=== PATIENT | male | born 1975 | race Caucasian/White ===

== ENCOUNTER 2022-04-01 18:33 | Emergency (ER) | payer BC, SELFPAY ==
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
[2022-04-01 18:45] VITALS: BP 116/90; PULSE 79; RESP 16; TEMP 37.2; O2SAT 100
[2022-04-01] MEDS: SILVER SULFADIAZINE 1% CR 50 GM JAR (*BKC) 2 APPLIC TOPICAL (19:15)
== END 2022-04-01 19:24 | disposition home or self-care (01) ==
PROVIDERS: Emergency Provider Nurse Practitioner Family
DX: L55.1 Sunburn of second degree (principal); L03.115 Cellulitis of right lower limb
CPT/HCPCS: 16030; 99203; A9270; G0463

== ENCOUNTER 2022-06-16 09:53 | Emergency (ER) | payer BC, SELFPAY ==
--- NOTE | 2022-06-16 10:00 | ED.URI ---
HPI - URI/Sore Throat General Chief Complaint: Upper Respiratory Infection Stated Complaint: sore throat Time Seen by Provider: 06/16/22 10:00 Source: patient and RN notes reviewed Mode of arrival: ambulatory Limitations: no limitations History of Present Illness HPI Narrative: 46-year-old male presents concern for 10-day history of illness. Reports 5 to 6-day history of sore throat. Reports cough. Reports cough keeping him awake at night. Reports he had cephalexin prescribed for a virtual doctor's visit, he is still taking an antibiotic and he does not feel better. Reports intermittent fever. Reports he has been taking NyQuil. Reports his son had strep throat. MD elicited complaint: cough and sore throat Related Data Home Medications Medication Instructions Recorded Confirmed atorvastatin 20 mg tablet 20 mg PO HS 04/01/22 04/01/22 lisinopril 10 mg tablet 10 mg PO DAILY 04/01/22 04/01/22 Allergies Allergy/AdvReac Type Severity Reaction Status Date / Time No Known Allergies Allergy Verified 04/01/22 18:44 Review of Systems Review of Systems: CONSTITUTIONAL: Reports malaise, intermittent fever. EYES: Denies visual changes, redness, or discharge. ENT: Reports rhinorrhea, congestion, sore throat. Denies sinus pain, otalgia CARDIOVASCULAR: Denies chest pain, palpitations, or edema. RESPIRATORY: Reports persistent cough. Denies dyspnea. GASTROINTESTINAL: Denies abdominal pain, nausea, vomiting, diarrhea SKIN: Denies rash or itching. MUSCULOSKELETAL: Denies myalgia. NEUROLOGIC: Denies headache. All systems reviewed & are unremarkable except as noted in HPI and below [facility] Surgical History Surgical History (Updated 04/01/22 @ 18:52 by JOHN Huang) History of tonsillectomy Comments At time of signature, agree with nursing past medical, surgical, social and family history. There is no relevant family history pertinent to the presenting complaint Exam Narrative: GENERAL: Nontoxic appearing and in no acute distress. HEAD: Normocephalic EYES: PERRLA, conjunctivae clear ENT: Nares clear, turbinates edematous and erythematous, clear discharge. Mucous membranes moist. TM pearly davis with dull light reflex bilaterally; no tragal tenderness. Oropharynx not erythematous without lesions. Tonsils not enlarged and without exudate, no drooling, no hoarseness, no trismus, uvula midline. NECK: Supple. No lymphadenopathy CHEST: Clear to auscultation, breath sounds equal. No wheezing, rhonchi, rales, or stridor. No respiratory distress, speaks in full sentences. HEART: Regular rate and rhythm. No murmur heard. SKIN: Warm, dry, no rash. NEURO: Alert and oriented x3. PSYCH: Normal mood and affect Course Course Emergency Course: Patient is aware of diagnosis, understands and agrees to treatment plan. Anticipatory guidance given. Patient agrees to follow-up as directed and is aware of reasons to seek care at the emergency department. Portions of this record may have been created with voice recognition software Level of Care: Express Care Visit Vital Signs Vital signs: Reviewed. MDM - URI/Sore Throat MDM Narrative Medical decision making narrative: Differential diagnosis considered: Choudhury virus, strep pharyngitis, allergic rhinitis, upper respiratory tract infection, sinusitis, rhinosinusitis, nasopharyngitis. viral pharyngitis, otitis media, otitis externa, pneumonia, bronchitis, viral cough syndrome, viral syndrome, and influenza. Exam findings show no acute concerns or changes; patient is non-toxic appearing and is in no distress. Patient is appropriate for outpatient treatment and follow-up. Lab Data Attestation: I reviewed the patient's lab results. Critical Care Time Critical Care Time Critical Care Time: No Discharge Plan Discharge Clinical Impression: URI with cough and congestion Patient Disposition: Home, Self-Care Condition: Stable Instructions: Upper Respiratory Infection (ED) [place]
[2022-06-16 10:03] VITALS: BP 134/99; PULSE 110; RESP 16; TEMP 36.4; O2SAT 100
== END 2022-06-16 10:22 | disposition home or self-care (01) ==
PROVIDERS: Emergency Provider Nurse Practitioner
DX: J06.9 Acute upper respiratory infection, unspecified (principal); R05.9 Cough, unspecified
CPT/HCPCS: 99213; G0463

== ENCOUNTER 2022-08-24 16:55 | Emergency (ER) | payer BC, SELFPAY ==
[2022-08-24 17:04] VITALS: BP 113/83; PULSE 99; RESP 16; TEMP 36.6; O2SAT 100
--- NOTE | 2022-08-24 17:13 | ED.NAVMDI ---
HPI - Nausea/Vomiting/Diarrhea General Chief complaint: Nausea/Vomiting/Diarrhea Stated complaint: dizzy, nausea, vomitting Time Seen by Provider: 08/24/22 17:13 Source: patient, RN notes reviewed and old records reviewed Mode of arrival: ambulatory Limitations: no limitations History of Present Illness HPI Narrative: 47 year old male who presents to [facility] care with complaints of feeling dizzy and nausea and vomiting since he awoke this morning.He reports that anytime he moves he throws up. Patient states last night he felt like he was off balance but this morning symptoms of vomiting and dizziness and vertigo can't keep anything down. Patient reports that he has no history of migraine and no known ill contacts. Patient states before Thanksgiving he was ill with cough and cold symptoms which resolved by weekend after Thanksgiving.Patient denies any fevers chills or any sweats today, reports no pain to abdomen or anywhere, denies any history of previous episodes of vertigo. Patient is daily tobacco smoker but has not smoked today. MD elicited complaint: nausea, vomiting and other (vertigo) Onset (ago): day(s) (this am) Treatment prior to arrival: none Related Data Home Medications Medication Instructions Recorded Confirmed atorvastatin 20 mg tablet 20 mg PO HS 04/01/22 08/24/22 lisinopril 10 mg tablet 10 mg PO DAILY 04/01/22 08/24/22 Allergies Allergy/AdvReac Type Severity Reaction Status Date / Time No Known Allergies Allergy Verified 08/24/22 17:12 Review of Systems Review of Systems: CONSTITUTIONAL: Denies malaise, chills, sweats, or fever. EYES: Denies visual changes, redness, or discharge. ENT: No rhinorrhea, congestion, sinus pain, otalgia and sore throat. CARDIOVASCULAR: Denies chest pain, palpitations, or edema. RESPIRATORY:Denies cough.? Denies dyspnea. GASTROINTESTINAL: Denies abdominal pain, positive for nausea, vomiting,no diarrhea SKIN: Denies rash or itching. MUSCULOSKELETAL: Denies myalgia. NEUROLOGIC: Denies headache.positive for vertigo and vomiting with position changes. All systems reviewed & are unremarkable except as noted in HPI and below [facility] Past Medical History Medical History (Updated 08/24/22 @ 19:14 by Brittany Quintana NP) Finger fracture Surgical History Surgical History (Updated 04/01/22 @ 18:52 by JOHN Huang) History of tonsillectomy Social History Social History (Updated 08/24/22 @ 19:13 by Brittany Quintana NP) Smoking status: Current every day smoker Tobacco type: cigarettes Gender identity (if verbalized by the patient): Male Comments At time of signature, agree with nursing past medical, surgical, social and family history. There is no relevant family history pertinent to the presenting complaint Exam Narrative: GENERAL: Well-appearing, well-nourished, and in no acute distress. HEAD: Normocephalic EYES: PERRLA, conjunctivae clear ENT: Nares clear, turbinates edematous and erythematous, clear discharge. Mucous membranes moist. TM pearly davis with dull light reflex bilaterally; no tragal tenderness. Oropharynx erythematous without lesions. Tonsils not enlarged and without exudate, no drooling, no hoarseness, no trismus, uvula midline. NECK: Supple. No lymphadenopathy CHEST: Clear to auscultation, breath sounds equal. No wheezing, rhonchi, rales, or stridor. No respiratory distress, speaks in full sentences.no cough noted SAO2 100% on room air HEART: Regular rate and rhythm. No murmur heard. SKIN: Warm, dry, no rash. NEURO: Alert and oriented x3. PSYCH: Normal mood and affect Course Course Emergency Course: Patient is aware of diagnosis, understands and agrees to treatment plan.? Anticipatory guidance given.? Patient agrees to follow-up as directed and is aware of reasons to seek care at the emergency department. Portions of this record may have been created with voice recognition software Level of Care: [place]
[2022-08-24] MEDS: ONDANSETRON HCL ODT 4 MG TABLET SUBLINGUAL (17:21)
[2022-08-24] MEDS: diphenhydrAMINE HCl INJ 50 MG/ML VIAL IM (17:51)
--- NOTE | 2022-08-24 17:54 | PC.NURSE ---
Pt medicated per [employer]TER order. Pt laying down on table. Will continue to monitor.
--- NOTE | 2022-08-24 18:07 | PC.NURSE ---
Pt given ice chips for PO challenge
--- NOTE | 2022-08-24 18:30 | PC.NURSE ---
Pt resting on table, playing on phone. Pt states this is the best I've felt all day . Pt has not attempted to stand up, but states he is able to turn his head without much dizziness. Pt has eaten entire cup of ice chips without vomiting. MEDICAL OFFICE WORKER aware.
== END 2022-08-24 19:02 | disposition home or self-care (01) ==
PROVIDERS: Emergency Provider Registered Nurse
DX: B34.9 Viral infection, unspecified (principal); R11.2 Nausea with vomiting, unspecified; R42 Dizziness and giddiness; F17.200 Nicotine dependence, unspecified, uncomplicated
CPT/HCPCS: 87804; 96372; 99213; A9270; G0463; J1200

== ENCOUNTER 2024-01-21 15:50 | Emergency (ER) | payer BC, SELFPAY ==
--- NOTE | ~2024-01-21 | XR_ITS ---
EXAMINATION: XR chest 2V DATE: 01/21/2024 16:19 INDICATION: 2 weeks of cough TECHNIQUE: PA and lateral views of the chest were obtained. COMPARISON: None FINDINGS: The lungs are clear with no focal airspace opacities, pulmonary edema, pleural effusion or pneumothor ax. The cardiomediastinal silhouette is normal. Mild thoracic spondylosis. IMPRESSION: 1. No acute cardiopulmonary disease. Reviewed, dictated and finalized at location A.
--- NOTE | 2024-01-21 15:52 | ED.URI ---
HPI - URI/Sore Throat General Chief Complaint: Upper Respiratory Infection Stated Complaint: Cough/Congestion Time Seen by Provider: 01/21/24 16:10 Source: patient, RN notes reviewed and old records reviewed Mode of arrival: ambulatory Limitations: no limitations History of Present Illness HPI Narrative: 48-year-old male presents to the [facility] with complaints of cough, congestion for over 2 weeks. Patient is a smoker. Patient reports coughing. Had similar episode in the past and was diagnosed with bronchitis. States the 1st couple of days he felt feverish. Has tried [id number] cold medication Treatments prior to arrival: cold medicine Related Data Home Medications Medication Instructions Recorded Confirmed lisinopril 10 mg tablet 10 mg PO DAILY 04/01/22 01/21/24 pantoprazole 40 mg tablet,delayed 40 mg PO DAILY 01/21/24 01/21/24 release Allergies Allergy/AdvReac Type Severity Reaction Status Date / Time No Known Allergies Allergy Verified 01/21/24 16:15 Review of Systems Review of Systems: All systems reviewed & are unremarkable except as noted in HPI and below Constitutional: Constitutional: Reports no additional constitutional complaints Eyes: Eyes: Reports no additional eye complaints ENT: Reports system reviewed and no additional complaints, except as documented Cardiovascular: Cardiovascular: Reports no additional cardiovascular complaints, Denies chest pain and Denies dyspnea Respiratory: Respiratory: Reports as per HPI, Reports chest congestion, Reports cough and Denies dyspnea Gastrointestinal: Gastrointestinal: Reports no additional gastrointestinal complaints, Denies abdominal pain, Denies nausea and Denies vomiting Musculoskeletal: Musculoskeletal: Reports no additional musculoskeletal complaints Integumentary/Breasts: Skin/Breast: Reports system reviewed and no additional complaints, except as docu Neurologic: Reports system reviewed and no additional complaints, except as documented Psychiatric: Psychiatric: Reports no additional psychiatric complaints Allergic/Immunologic: Allergic/Immunologic: Reports no additional allergic/immunologic complaints PMFSH Past Medical History Medical History Finger fracture Surgical History Surgical History History of tonsillectomy Social History Social History Smoking status: Current every day smoker Tobacco type: cigarettes Gender identity (if verbalized by the patient): Male Comments At the time of my signature, I reviewed and agree with the nursing past medical, surgical, social, and family history. There is no relevant family history pertinent to the patient complaint. Exam Const: General: cooperative, healthy appearing, comfortable, no acute distress, well developed, alert and well nourished Nutritional Appearance: well nourished Orientation/consciousness: patient oriented x3 Limitations: no limitations HENMT: Head: normal to inspection Ears: hearing grossly normal bilaterally, external ears normal, TM's normal bilaterally, EAC's normal, mastoids normal and no periauricular adenopathy Face/Nose/Sinus: Normal external nose present, Normal nares present, Normal nasal mucous membranes and turbinates present, normal facial exam and face symmetric Face and sinus: normal facial exam and face symmetric Mouth: Yes Normal oral and palatal mucosa present, Yes lip normal and Yes moist mucous membranes Throat: posterior oropharynx normal, uvula midline, tonsils absent and no uvular edema Eyes: General: appearance normal, both eyes and all related structures Alignment and Position: alignment normal Periorbital: periorbital findings normal Pupils: Equal, round and reactive pupils present EOM: EOMs intact bilaterally Neck: Neck: normal visual inspection, full ROM, no lymp
[2024-01-21 16:00] VITALS: BP 119/92; PULSE 88; RESP 16; TEMP 36.4; O2SAT 100
[2024-01-21] MEDS: ALBUTEROL SULFATE NEB 2.5 MG/3 ML INH INHALATION (16:23)
[2024-01-21 16:24] VITALS: PULSE 88; RESP 16; O2SAT 99
[2024-01-21] MEDS: IPRATROPIUM BR 0.02% INH SOLN 0.5 MG/2.5 ML VIAL INHALATION (16:24)
[2024-01-21 16:42] VITALS: PULSE 86; RESP 18; O2SAT 99
== END 2024-01-21 17:00 | disposition home or self-care (01) ==
PROVIDERS: Emergency Provider Nurse Practitioner
DX: J40 Bronchitis, not specified as acute or chronic (principal); F17.210 Nicotine dependence, cigarettes, uncomplicated
CPT/HCPCS: 71046; 94640; 99213; G0463

== ENCOUNTER 2024-06-05 11:40 | Emergency (ER) | payer BC, SELFPAY ==
[2024-06-05] VITALS (14 sets, daily range): BP systolic 95–127; BP diastolic 57–95; PULSE 72–230; RESP 11–28; TEMP 36.8; O2SAT 95–100
--- NOTE | ~2024-06-05 | CT_ITS ---
EXAMINATION: CTA chest abdomen pelvis DATE: 06/05/2024 12:45 INDICATION: Abdominal aortic aneurysm. Supraventricular tachycardia. TECHNIQUE: Computed tomographic angiography (CTA) of the chest, abdomen, and pelvis was performed wit h 100 mL Omnipaque-350 intravenous contrast. Automated exposure control and iterative reconstruction technique were employed. The dose-length product was 955.92 mGy-cm. Maximum intensity projection 3D-r econstructions of the aorta and other arteries were constructed by the technologist on a separate wor kstation. COMPARISON: None. FINDINGS: CHEST CTA: The lungs demonstrate mild atelectasis. No pleural effusion. The heart size is normal. No pericardial effusion. There is no pulmonary embolus. There is ectasia of ascending aorta measuring 4.2 cm. There is mild thoracic spondylosis. ABDOMEN AND PELVIS CTA: The liver and spleen are normal. The gallbladder is absent. The pancreas, adrenal glands, and kidneys are normal. The prostate is mildly enlarged. There are no dilated loops of bowel. The appendix is no rmal. Abdominal aorta is normal in caliber. Aortic atherosclerosis is noted. There is no significant stenosis of celiac axis, superior mesenteric artery, the renal arteries, or inferior mesenteric arter y. There are no pathologically enlarged lymph nodes. There is no free intraperitoneal fluid. There is mild lumbar spondylosis. IMPRESSION: 1. Ectasia of ascending aorta measuring 4.2 cm. Reviewed, dictated and finalized at location A.
--- NOTE | ~2024-06-05 | XR_ITS ---
EXAMINATION: XR chest 2V DATE: 06/05/2024 12:26 INDICATION: Chest pain and shortness of breath TECHNIQUE: frontal and lateral views of the chest were obtained. COMPARISON: Chest radiograph dated 01/21/24 FINDINGS: The lungs remain clear with no focal airspace opacities, pulmonary edema, pleural effusion or pneumot horax. The cardiomediastinal silhouette is normal. Mild thoracic spondylosis. IMPRESSION: 1. No acute cardiopulmonary disease. Reviewed, dictated and finalized at location B.
--- NOTE | 2024-06-05 11:41 | ECG_ITS ---
Test Date: 2024-06-05 11:48:55 Measurements Intervals [place] Rate: 226 P: 0 MS: 0 QRS: -68 QRSD: 231 T: 0 QT: 215 QTc: 417 Interpretive Statements SUPRAVENTRICULAR TACHYCARDIA INTRAVENTRICULAR CONDUCTION DELAY ST ABNORMALITY IN INF/LAT LEADS- CONSIDER ISCHEMIA OR RATE RELATED BASELINE ARTIFACT- I, II, AVR, AVL ABNORMAL ECG No previous ECG available for comparison Electronically Signed On 06-05-2024 18:40:08 CDT by Panda Mccord D.O.
[2024-06-05] MEDS: ADENOSINE IV SOLN 6 MG/2 ML VIAL IV PUSH (12:00)
--- NOTE | 2024-06-05 12:02 | ECG_ITS ---
Test Date: 2024-06-05 12:02:54 Measurements Intervals [place] Rate: 113 P: 74 MA: 136 QRS: -31 QRSD: 97 T: 60 QT: 294 QTc: 404 Interpretive Statements SINUS TACHYCARDIA LEFT AXIS DEVIATION POSSIBLE LEFT ATRIAL ENLARGEMENT INCOMPLETE RIGHT BUNDLE BRANCH BLOCK PEAKED T WAVES- CONSIDER HYPERKALEMIA ABNORMAL ECG Compared to ECG 06/05/2024 11:48:55 SUPRAVENTRICULAR TACHYCARDIA NO LONGER PRESENT Electronically Signed On 06-06-2024 07:56:39 CDT by Panda Mccord D.O.
[2024-06-05 12:03] LABS: Basophils Absolute Auto 0.1 K/mm3 (0.0-0.1); Basophils Percent Auto 0.3 % (0.2-1.2); Eosinophils Absolute Auto 0.2 K/mm3 (0-0.3); Hematocrit 47.2 % (42.0-52.0); Hemoglobin 16.5 g/dL (14.0-18.0); Immature Granulocyte Absolute 0.05 K/mm3 (0.00-0.031); Immature Granulocyte Percent A 0.3 % (0-0.5); Lymphocytes Absolute Auto 4.56 K/mm3 (0.9-3.2); Lymphocytes Percent Auto 30.3 % (18.3-44.2); Mean Corpuscular Hemoglobin 33.3 pg (26-34); Mean Corpuscular Volume 95.2 fl (80-100); Mean Platelet Volume 10.9 fl (7.4-10.4); Monocytes Absolute Auto 1.3 K/mm3 (0.1-0.6); Monocytes Percent Auto 8.4 % (2.6-8.5); Neutrophils Percent Auto 59.7 % (45.5-73.1); Platelet Count Result 201 k/mm3 (150-375); Red Blood Count 4.96 M/mm3 (4.6-6.20); Red Cell Distribution Width 12.2 % (11.5-14.5); White Blood Count 15.1 K/mm3 (4.5-10.0)
[2024-06-05 12:16] LABS: Alanine Aminotransferase 20 U/L (6-50); Alkaline Phosphatase 84 U/L (38-126); Anion Gap 15 mmol/L (4-12); Aspartate Amino Transferase 23 U/L (17-59); Bilirubin,Total 0.5 mg/dL (0.2-1.3); Blood Urea Nitrogen 19 mg/dL (9-20); Calcium 9.9 mg/dL (8.4-10.2); Carbon Dioxide 20 mmol/L (22-30); Chloride 104 mmol/L (98-107); Estimated CRCL calculation 108 ml/min; Estimated Glomerular Filt Rate > 60; Glucose 127 mg/dL (65-110); Lipase 113 U/L (23-300); Potassium 4.2 mmol/L (3.4-5.0); Sodium 139 mmol/L (137-145)
[2024-06-05 12:19] LABS: Partial Thromboplastin Time 28.8 Seconds (22.3-36.8)
[2024-06-05 12:20] LABS: Prothrombin Time 13.1 Seconds (11.1-14.7)
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
[2024-06-05 12:38] LABS: Troponin I < 0.012 ng/mL (0.000-0.034)
[2024-06-05] MEDS: ASPIRIN 81 MG CHEWABLE TABLET 324 MG PO (12:52)
[2024-06-05] MEDS: LACTATED RINGERS 1,000 ML 999 ML IV CONT (12:53)
[2024-06-05 14:58] LABS: Troponin I < 0.012 ng/mL (0.000-0.034)
--- NOTE | 2024-06-11 15:01 | WPDHOLTEREM ---
Holter/Event Monitor Holter/Event Monitor Date of procedure: 06/05/24 Holter/Event Procedure: 48 Hr Holter Monitor Indications: SVT Conclusion: 1. 48 hour holter monitor on 06/05/24. 2. Underlying rhythm is sinus rhythm. HR range 56-133 bpm; average HR 83 bpm. 3. There are 9 premature supraventricular complexes. No supraventricular tachycardia. 4. There are 55 premature ventricular complexes. No ventricular tachycardia. 5. No sinoatrial or atrioventricular blocks. No significant pauses greater than 2 seconds. 6. Patient reports left sided chest pain which demonstrate sinus rhythm, HR range 78-106 bpm.
== END 2024-06-05 16:01 | disposition home or self-care (01) ==
PROVIDERS: Emergency Provider Student in an Organized Health Care Education/Training Program
DX: I47.10 Supraventricular tachycardia, unspecified (principal); I10 Essential (primary) hypertension
CPT/HCPCS: 36415; 71046; 71275; 74174; 80053; 83690; 84484; 85025; 85610; 85730; 93005; 93225; 93226; 96361; 96374; 99284; A9270; J0153; J7030; J7120; Q9967

== ENCOUNTER 2024-06-29 13:24 | Emergency (ER) | payer BC, SELFPAY ==
[2024-06-29 13:32] VITALS: BP 128/94; PULSE 77; RESP 18; TEMP 36.7; O2SAT 100
--- NOTE | 2024-06-29 13:45 | ED.SKABFB ---
HPI - Skin/Abscess/Foreign Bdy General Chief complaint: Skin/Abscess/Foreign Body Stated complaint: Rash Time Seen by Provider: 06/29/24 13:37 Source: patient and RN notes reviewed Mode of arrival: ambulatory Limitations: no limitations History of Present Illness HPI narrative: Patient presents today complaining of a one-week history of pruritic rash to the right forearm. States he does get this rash frequently as he works at a [employer] as has his arm in patient tanks. It is frequently treated by his PCP with triamcinolone, which she has been using without relief of symptoms this time. Related Data Home Medications Medication Instructions Recorded Confirmed lisinopril 10 mg tablet 10 mg PO DAILY 04/01/22 01/21/24 pantoprazole 40 mg tablet,delayed 40 mg PO DAILY 01/21/24 01/21/24 release atorvastatin 10 mg tablet mg 06/29/24 metformin 500 mg tablet,extended mg PO 06/29/24 release 24 hr Allergies Allergy/AdvReac Type Severity Reaction Status Date / Time No Known Allergies Allergy Verified 06/29/24 13:38 Review of Systems Review of Systems: CONSTITUTIONAL: Denies body aches, fever, chills, or sweats. EYES: Denies visual changes, redness, or discharge. ENT: Denies rhinorrhea, congestion, sore throat, or otalgia. CARDIOVASCULAR: Denies chest pain, palpitations, or edema. RESPIRATORY: Denies cough or dyspnea. GASTROINTESTINAL: Denies abdominal pain, nausea, vomiting, or diarrhea. GENITOURINARY: Denies dysuria or hematuria. SKIN: + forearm rash MUSCULOSKELETAL: Denies back pain, joint pain, or myalgia. NEUROLOGIC: Denies headache, numbness, tingling, or weakness. PSYCH: Denies depression or anxiety. [facility] Past Medical History Medical History Finger fracture Surgical History Surgical History History of tonsillectomy Social History Social History Smoking status: Current every day smoker Tobacco type: cigarettes Gender identity (if verbalized by the patient): Male Comments At time of signature, I have reviewed and agree with nursing past medical, surgical, social and family history unless otherwise noted. Please see nursing chart for further information. There is no relevant family history pertinent to the presenting complaint Exam Narrative: GENERAL: Well-appearing, well-nourished, and in no acute distress. HEAD: Normocephalic, atraumatic. EYES: EOMI. No redness or drainage. Conjunctivae normal. ENT: Mucous membranes pink and moist. NECK: Normal AROM. CHEST: No respiratory distress. EXTREMITIES: Normal range of motion. No edema. SKIN: Warm, dry. Capillary refill normal. Normal skin turgor. Patient has some dry flaking areas to the anterior right forearm with a few small open ulcerations and few small crusted papules, surrounded by erythema. No induration or fluctuance noted. No active drainage. NEURO: No focal deficits. Alert and oriented x3. Gait steady. PSYCH: Normal affect. No signs of depression or anxiety. Course Course Level of Care: Express Care Visit Vital Signs Vital signs: Vital Signs Temperature 98.0 F 06/29/24 13:32 Pulse Rate 77 06/29/24 13:32 Respiratory Rate 18 06/29/24 13:32 Blood Pressure 128/94 H 06/29/24 13:32 Pulse Oximetry 100 06/29/24 13:32 Oxygen Delivery Room Air 06/29/24 13:32 Temperature 98.0 F 06/29/24 13:32 Pulse Rate 77 06/29/24 13:32 Respiratory Rate 18 06/29/24 13:32 Blood Pressure 128/94 H 06/29/24 13:32 Pulse Oximetry 100 06/29/24 13:32 Oxygen Delivery Room Air 06/29/24 13:32 Reviewed MDM - Skin/Abscess/Foreign Bdy MDM Narrative Medical decision making narrative: Patient does have some developing cellulitis with scabbed lesions. Will start on Keflex to treat this. Recommend PCP follow-up if symptoms do not improve. Differential Diagnosis Differential diagnosis: Likely abscess of skin or subcutaneous tissue, cellulitis, impetigo and contact dermatitis Critical Care Time Critical Care Time Critical Care Time: No Discharge Plan Discharge Clinical Impression: Cellulitis Qualifiers: Site of cellulitis: extremity Site of cellulitis of extremity: upper extremity Laterality: right Qualified Code(s): L03.113 - Cellulitis of right upper limb Patient Disposition: Home, Self-Care Condition: Stable Instructions: Antibiotic Form, Cellulitis (ED) Additional Instructions: Please take the Keflex as prescribed. You may continue the triamcinolone in areas the do not have the open wound. Follow-up with your PCP if symptoms do not improve. Your blood pressure was elevated above 120/80 today at Urgent Care. This puts you above the threshold for follow up. Please schedule a followup visit with your personal physician as soon as possible, for further evaluation and treatment. Even blood pressure exceeding 120/80 may indicate pre-hypertension. Prescriptions: New cephalexin 500 mg capsule 500 mg PO Q6H 7 Days Qty: 28 0RF No Action lisinopril 10 mg Tablet 10 mg PO DAILY pantoprazole 40 mg tablet,delayed release (DR/EC) 40 mg PO DAILY (DME) Aerochamber MV Spacer See Rx Instructions .Route Qty: 1 0RF Rx Instructions: As directed levalbuterol tartrate 45 mcg/actuation HFA aerosol inhaler 2 inh inhalation Q6H PRN (Reason: shortness of breath or wheezing) Qty: 15 0RF atorvastatin 10 mg tablet metformin 500 mg tablet extended release 24 hr PO Follow-up/Referrals: PHYSICIAN,TRANSFORMATION COACH [Primary Care Provider] - Time of Disposition: 13:49
== END 2024-06-29 13:50 | disposition home or self-care (01) ==
PROVIDERS: Emergency Provider Nurse Practitioner
DX: L03.113 Cellulitis of right upper limb (principal); F17.210 Nicotine dependence, cigarettes, uncomplicated
CPT/HCPCS: 99213; G0463

== ENCOUNTER 2024-09-30 11:23 | Emergency (ER) | payer OTHER, SELFPAY ==
--- NOTE | 2024-09-30 11:31 | ED_ITS ---
HPI - Skin/Abscess/Foreign Bdy General Chief complaint: Skin/Abscess/Foreign Body Stated complaint: INSECT BITE R LEG Source: patient Mode of arrival: ambulatory Limitations: no limitations History of Present Illness HPI narrative: 49-year-old male presented for complaint of a possible insect bite to the right upper thigh. Endorses itching and mild pain to the site for about 2 weeks. Today he reports the muscle of the right inner thigh is also tender. Has applied Neosporin to the site. Denies drainage. Denies changes to soap, detergent, lotion, or any other exposures. No one else in the house or any cont acts with similar symptoms. Related Data Home Medications ?Medication ?Instructions ?Recorded ?Confirmed ?Last Taken ?Type lisinopril 10 mg tablet 10 mg PO DAILY 04/01/22 01/21/24 Unknown History pantoprazole 40 mg tablet,delayed 40 mg PO DAILY 01/21/24 01/21/24 Unknown History release atorvastatin 10 mg tablet mg 06/29/24 Unknown History metformin 500 mg tablet,extended mg PO 06/29/24 Unknown History release 24 hr Allergies Allergy/AdvReac Type Severity Reaction Status Date / Time No Known Allergies Allergy Verified 09/30/24 11:33 Review of Systems Review of Systems: CONSTITUTIONAL: Denies body aches, fever, chills, or sweats. EYES: Denies visual changes, redness, or discharge. ENT: Denies rhinorrhea, congestion CARDIOVASCULAR: Denies chest pain, palpitations, or edema. RESPIRATORY: Denies cough or dyspnea. GASTROINTESTINAL: Denies abdominal pain, nausea, vomiting, or diarrhea. SKIN: per HPI MUSCULOSKELETAL: Denies back pain, joint pain, or myalgia. NEUROLOGIC: Denies headache, numbness, tingling, or weakness. [facility] Past Medical History Medical History Finger fracture Surgical History Surgical History History of tonsillectomy Social History Social History Smoking status: Current every day smoker Tobacco type: cigarettes Gender identity (if verbalized by the patient): Male Comments At time of signature, I have reviewed and agree with nursing past medical, surgical, social and family history unless otherwise noted. Please see nursing chart for further information. There is no relevant family history pertinent to the presenting complaint Exam Narrative: GENERAL: Well-appearing EYES: conjunctivae clear, and EOMI. ENT: Mucous membranes moist. Oropharynx without edema, erythema or lesions. NECK: Supple. No lymphadenopathy CHEST: Clear to auscultation. HEART: Regular rate and rhythm. SKIN: Warm, dry. Right inner/upper thigh with dry white scabbed follicle, minimally tender, mild surrounding erythema is scattered approx 3cm diameter. No fluctuance induration or active drainage. NEURO: Alert and oriented x3. Course Course Emergency Course: Patient is aware of diagnosis, understands and agrees to treatment plan. Anticipatory guidance given. Patient agrees to follow-up as directed and is aware of reasons to seek care at the emergency department. Portions of this record may have been created with voice recognition software Level of Care: Express Care Visit Vital Signs Vital signs: Reviewed MDM - Skin/Abscess/Foreign Bdy MDM Narrative Medical decision making narrative: Discussed physical exam findings; no indication for I&D at this time. Advised supportive measures and signs/symptoms to go to the ER. Pt is appropriate for outpt treatment and f/u. Differential Diagnosis Differential diagnosis: Likely abscess of skin or subcutaneous tissue, viral exanthem, dermatophytosis, urticaria, herpes zoster, cellulitis, eczema, insect bites, impetigo and contact dermatitis Discharge Plan Discharge Clinical Impression: Dermatitis Patient Disposition: Home, Self-Care Condition: Stable Instructions: Antibiotic Form, Folliculitis (ED) Additional Instructions: Keep the area clean and dry - cleanse with warm water and mild soap and allow to fully dry. Apply the ointment as directed to the site Keep it open to air (no bandages) Avoid scratching to reduce the risk of infection Tylenol as needed for pain Watch for worsening symptoms including pain, redness, swelling, streaking, pus/drainage, fever. Go to the ER with any of these symptoms or concerns. Follow up with primary care provider in 1 week Patient Language: Tanzanian Prescriptions: New cephalexin 500 mg capsule 500 mg PO Q8H 5 Days Qty: 15 0RF No Action lisinopril 10 mg Tablet 10 mg PO DAILY pantoprazole 40 mg tablet,delayed release (DR/EC) 40 mg PO DAILY (DME) Aerochamber MV Spacer See Rx Instructions .Route Qty: 1 0RF Rx Instructions: As directed levalbuterol tartrate 45 mcg/actuation HFA aerosol inhaler 2 inh inhalation Q6H PRN (Reason: shortness of breath or wheezing) Qty: 15 0RF atorvastatin 10 mg tablet metformin 500 mg tablet extended release 24 hr PO Follow-up/Referrals: Mookie,Elle [Other]
[2024-09-30 11:32] VITALS: BP 140/89; PULSE 87; RESP 16; TEMP 36.7; O2SAT 100
== END 2024-09-30 11:44 | disposition home or self-care (01) ==
PROVIDERS: Emergency Provider Nurse Practitioner Family
DX: L30.9 Dermatitis, unspecified (principal); F17.210 Nicotine dependence, cigarettes, uncomplicated
CPT/HCPCS: 99213; G0463

== ENCOUNTER 2024-10-07 08:59 | Emergency (ER) | payer OTHER, SELFPAY ==
--- NOTE | ~2024-10-07 | XR_ITS ---
EXAMINATION: XR chest 2V 10/07/2024 09:43 INDICATION: SVT. Rapid heart rate. Dizziness. PROCEDURE: 2 view chest COMPARISON: 06/05/2024 FINDINGS: No focal pneumonia or edema. Left basilar atelectasis. The cardiomediastinal silhouette is within normal limits. There are no pleural effusions. There is no pneumothorax suspected. IMPRESSION: 1: Subsegmental atelectasis left lung base. Reviewed, dictated and finalized at location A. TY ADVISER
[2024-10-07 09:05] VITALS: BP 110/90; PULSE 201; RESP 28; TEMP 36.4; O2SAT 100
[2024-10-07 09:16] LABS: Basophils Absolute Auto 0.1 K/mm3 (0.0-0.1); Basophils Percent Auto 0.4 % (0.2-1.2); Eosinophils Absolute Auto 0.2 K/mm3 (0-0.3); Eosinophils Percent Auto 1.3 % (0-4.4); Hematocrit 46.2 % (42.0-52.0); Hemoglobin 15.8 g/dL (14.0-18.0); Immature Granulocyte Absolute 0.06 K/mm3 (0.00-0.031); Immature Granulocyte Percent A 0.4 % (0-0.5); Lymphocytes Absolute Auto 4.39 K/mm3 (0.9-3.2); Lymphocytes Percent Auto 28.1 % (18.3-44.2); Mean Corpuscular HGB Conc 34.2 g/dl (32-36); Mean Corpuscular Hemoglobin 32.3 pg (26-34); Mean Corpuscular Volume 94.5 fl (80-100); Mean Platelet Volume 10.4 fl (7.4-10.4); Monocytes Absolute Auto 1.2 K/mm3 (0.1-0.6); Monocytes Percent Auto 7.9 % (2.6-8.5); Neutrophils Absolute Auto 9.7 K/mm3 (1.3-6.7); Neutrophils Percent Auto 61.9 % (45.5-73.1); Platelet Count Result 183 k/mm3 (150-375); Red Blood Count 4.89 M/mm3 (4.6-6.20); Red Cell Distribution Width 12.4 % (11.5-14.5); White Blood Count 15.7 K/mm3 (4.5-10.0)
[2024-10-07 09:17] VITALS: BP 116/89; PULSE 81; PULSE 84; RESP 14; TEMP 36.4; O2SAT 99
[2024-10-07 09:25] LABS: Alanine Aminotransferase 25 U/L (6-50); Albumin Level 4.5 g/dL (3.5-5.1); Alkaline Phosphatase 85 U/L (38-126); Anion Gap 8 mmol/L (4-12); Aspartate Amino Transferase 24 U/L (17-59); Bilirubin,Total 0.4 mg/dL (0.2-1.3); Blood Urea Nitrogen 21 mg/dL (9-20); Calcium 9.1 mg/dL (8.4-10.2); Carbon Dioxide 25 mmol/L (22-30); Chloride 106 mmol/L (98-107); Estimated CRCL calculation 96 ml/min; Estimated Glomerular Filt Rate > 60; Glucose 134 mg/dL (65-110); Sodium 139 mmol/L (137-145)
[2024-10-07] MEDS: ASPIRIN 81 MG CHEWABLE TABLET 324 MG PO (09:28)
--- NOTE | 2024-10-07 09:30 | ED_ITS ---
HPI - General Adult General Chief complaint: Arrhythmia/Palpitations Stated complaint: svt Time Seen by Provider: 10/07/24 09:01 History of Present Illness HPI narrative: 49-year-old male presenting to the emergency department for evaluation for an episode of SVT. Patient does have prior history SVT and is on diltiazem and is scheduled to have cardiac ablation at [place]. Patient states he has had approximately 6 episodes in the last 6 months and has had needed prior cardioversion with Adenocard. States he was walking his dog this morning we had onset the sensation of rapid heart rate. This occurred approximately an hour half prior to arrival. On arrival emergency department patient was an SVT with heart rate of 201. Patient was describing some chest pressure with this. Related Data Home Medications ?Medication ?Instructions ?Recorded ?Confirmed ?Last Taken ?Type lisinopril 10 mg tablet 10 mg PO DAILY 04/01/22 01/21/24 Unknown History pantoprazole 40 mg tablet,delayed 40 mg PO DAILY 01/21/24 01/21/24 Unknown History release atorvastatin 10 mg tablet mg 06/29/24 Unknown History metformin 500 mg tablet,extended mg PO 06/29/24 Unknown History release 24 hr Allergies Allergy/AdvReac Type Severity Reaction Status Date / Time No Known Allergies Allergy Verified 09/30/24 11:33 Review of Systems 2 Review of Systems: All systems reviewed & are unremarkable except as noted in HPI and below PMFSH Past Medical History Medical History Finger fracture Surgical History Surgical History History of tonsillectomy Social History Social History Smoking status: Current every day smoker Tobacco type: cigarettes Gender identity (if verbalized by the patient): Male Exam 2 Narrative: APPEARANCE: Well appearing, no pain, no distress, well-nourished. HEAD: normocephalic, atraumatic. EYES: PERRLA/EOMI, conjunctivae clear. NOSE: Normal no drainage EARS:TMS clear with good light reflex. THROAT: Pharynx clear, no exudate. NECK: Supple. No adenopathy, no masses. RESPIRATORY: Airway patent, respirations nonlabored. Clear to auscultation bilaterally, no rales, rhonchi, wheezing. CARDIOVASCULAR: SVT ABDOMINAL: Soft, nontender, nondistended, normal bowel sounds MUSCULOSKELETAL: Moves all extremities. Strength/ROM intact, No edema, No calf tenderness. NEURO: Alert. Cranial nerves II through XII intact. Good gait. Good coordination SKIN: Warm, dry. Normal Color Course Vital Signs Vital signs: Vital Signs Temperature 97.6 F 10/07/24 09:05 Pulse Rate 201 H 10/07/24 09:05 Respiratory Rate 28 H 10/07/24 09:05 Blood Pressure 110/90 10/07/24 09:05 Pulse Oximetry 100 10/07/24 09:05 Oxygen Delivery Autopap 10/07/24 09:05 Temperature 97.9 F 10/07/24 10:22 Pulse Rate 73 10/07/24 10:22 Respiratory Rate 16 10/07/24 10:22 Blood Pressure 106/82 10/07/24 10:22 Pulse Oximetry 100 10/07/24 10:22 Oxygen Delivery Autopap 10/07/24 09:05 Medical Decision Making MDM Narrative Medical decision making narrative: 49-year-old male with history of SVT present to the emergency department in [facility]. Patient was cardioverted using a modified Valsalva and patient return to normal sinus rhythm. Patient states he was having decreased p.o. intake possible dehydration she was treated with a L of IV fluid. Patient states he does have sick contacts but denies any viral etiology. Patient was afebrile but does have a elevated white blood cell count of 15.7, hemoglobin of 15.8. Patient had no significant abnormalities on his CMP with normal potassium. Differential Diagnosis Differential Diagnosis: COVID, RSV, influenza, pneumonia, sinus tachycardia, SVT Medical Records Medical records reviewed: Yes I reviewed the external patient's medical records. Vital Signs Vital Signs: Vital Signs Temperature 97.6 F 10/07/24 09:05 Pulse Rate 201 H 10/07/24 09:05 Respiratory Rate 28 H 10/07/24 09:05 Blood Pressure 110/90 10/07/24 09:05 Pulse Oximetry 100 10/07/24 09:05 Oxygen Delivery Autopap 10/07/24 09:05 Temperature 97.9 F 10/07/24 10:22 Pulse Rate 73 10/07/24 10:22 Respiratory Rate 16 10/07/24 10:22 Blood Pressure 106/82 10/07/24 10:22 Pulse Oximetry 100 10/07/24 10:22 Oxygen Delivery Autopap 10/07/24 09:05 Lab Data Lab results reviewed: Yes I reviewed the patient's lab results. 10/07/24 09:08 10/07/24 09:08 Labs: Lab Results 10/07/24 10/07/24 Range/Units 09:08 09:17 WBC 15.7 H (4.5-10.0) K/mm3 RBC 4.89 (4.6-6.20) M/mm3 Hgb 15.8 (14.0-18.0) g/dL Hct 46.2 (42.0-52.0) % MCV 94.5 (80-100) fl MCH 32.3 (26-34) pg MCHC 34.2 (32-36) g/dl RDW 12.4 (11.5-14.5) % Plt Count 183 (150-375) k/mm3 MPV 10.4 (7.4-10.4) fl Immature Gran % (Auto) 0.4 (0-0.5) % Neut % (Auto) 61.9 (45.5-73.1) % Lymph % (Auto) 28.1 (18.3-44.2) % [place] % (Auto) 7.9 (2.6-8.5) % Eos % (Auto) 1.3 (0-4.4) % Baso % (Auto) 0.4 (0.2-1.2) % Lymph # (Auto) 4.39 H (0.9-3.2) K/mm3 [place] # (Auto) 1.2 H (0.1-0.6) K/mm3 Eos # (Auto) 0.2 (0-0.3) K/mm3 Baso # (Auto) 0.1 (0.0-0.1) K/mm3 Abs Immat Gran (auto) 0.06 H (0.00-0.031) K/mm3 Absolute Neuts (auto) 9.7 H (1.3-6.7) K/mm3 Absolute Nucleated RBC 0.000 (0.0-0.012) K/mm3 Nucleated RBC % 0.0 (0.0-0.2) % Sodium 139 (137-145) mmol/L Potassium 4.0 (3.4-5.0) mmol/L Chloride 106 (98-107) mmol/L Carbon Dioxide 25 (22-30) mmol/L Anion Gap 8 (4-12) mmol/L BUN 21 H (9-20) mg/dL Creatinine 0.89 (0.7-1.3) mg/dL Estim Creat Clear Calc 96 ml/min Estimated GFR > 60 (59 - ) Glucose 134 H (65-110) mg/dL Calcium 9.1 (8.4-10.2) mg/dL Total Bilirubin 0.4 (0.2-1.3) mg/dL AST 24 (17-59) U/L ALT 25 (6-50) U/L Alkaline Phosphatase 85 (38-126) U/L Total Protein 7.0 (6.3-8.2) g/dL Albumin 4.5 (3.5-5.1) g/dL Influenza A (RT-PCR) Negative (Negative) Influenza B (RT-PCR) Negative (Negative) RSV (RT-PCR) Negative (Negative) SARS-CoV-2 RNA (RT-PCR) Negative (Negative) Imaging Data Radiologist's impression: Impressions Chest X-Ray 10/07/24 09:48 IMPRESSION: 1: Subsegmental atelectasis left lung base. Discharge Plan Discharge Clinical Impression: Supraventricular tachycardia Patient Disposition: Home, Self-Care Condition: Stable Instructions: Antibiotic Form Additional Instructions: Have close follow-up with Cardiology. Continue to take your home medications as directed. If you have any worsening symptoms then please call or return to the emergency department. Patient Language: Micronesian Prescriptions: No Action lisinopril 10 mg Tablet 10 mg PO DAILY pantoprazole 40 mg tablet,delayed release (DR/EC) 40 mg PO DAILY (DME) Aerochamber MV Spacer See Rx Instructions .Route Qty: 1 0RF Rx Instructions: As directed levalbuterol tartrate 45 mcg/actuation HFA aerosol inhaler 2 inh inhalation Q6H PRN (Reason: shortness of breath or wheezing) Qty: 15 0RF atorvastatin 10 mg tablet metformin 500 mg tablet extended release 24 hr PO cephalexin 500 mg capsule 500 mg PO Q8H 5 Days Qty: 15 0RF Follow-up/Referrals: UNKNOWN,DOCTOR [Primary Care Provider] -
[2024-10-07 10:03] LABS: Influenza A QL RT-PCR Negative (Negative); Influenza B QL RT-PCR Negative (Negative); RSV RNA, RT-PCR Negative (Negative); SARS-CoV-2 RNA PCR Negative (Negative)
[2024-10-07 10:22] VITALS: BP 106/82; PULSE 73; RESP 16; TEMP 36.6; O2SAT 100
== END 2024-10-07 10:23 | disposition home or self-care (01) ==
PROVIDERS: Emergency Provider Emergency Medicine
DX: I47.10 Supraventricular tachycardia, unspecified (principal); Z20.822 Contact with and (suspected) exposure to COVID-19; F17.210 Nicotine dependence, cigarettes, uncomplicated; Z79.899 Other long term (current) drug therapy; Z79.84 Long term (current) use of oral hypoglycemic drugs; R94.31 Abnormal electrocardiogram [ECG] [EKG]
CPT/HCPCS: 36415; 71046; 80053; 85025; 87637; 93005; 99284; A9270

== ENCOUNTER 2025-01-26 13:08 | Emergency (ER) | payer OTHER, SELFPAY ==
[2025-01-26 13:22] VITALS: BP 130/89; PULSE 96; RESP 16; TEMP 36.7; O2SAT 99
[2025-01-26 14:18] VITALS: BP 132/95; BP 136/88; PULSE 75; PULSE 79
[2025-01-26 14:19] VITALS: BP 133/95; PULSE 95
--- NOTE | 2025-01-26 15:36 | ED.NAVMDI ---
HPI - Nausea/Vomiting/Diarrhea General Chief complaint: Nausea/Vomiting/Diarrhea Stated complaint: Dizzy/Nausea Time Seen by Provider: 01/26/25 14:00 Source: patient and RN notes reviewed Mode of arrival: ambulatory Limitations: no limitations History of Present Illness HPI Narrative: 49-year-old male presents Express Care complaining of dizziness and nausea for 3 days. 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 Patient has done physical therapy medication the past with improvement of symptoms. Patient states symptoms are present in the same. Patient reports he feels like he is off balance and that he is in motion. Patient's symptoms are worse when he turns his head too quickly or if he lays down. Patient states feeling lightheaded at times when standing up. Denies any syncope or near syncopal events. Patient has not taken anything [id number] for symptom management. Patient denies any chest pain, shortness of breath, weakness, slurred speech, blurry vision, vision changes. Patient has a history of hypertension and SVT. Patient recently had a cardiac ablation done 2 months ago. Related Data Home Medications ?Medication ?Instructions ?Recorded ?Confirmed ?Last Taken ?Type lisinopril 10 mg tablet 10 mg PO DAILY 04/01/22 01/21/24 Unknown History pantoprazole 40 mg tablet,delayed 40 mg PO DAILY 01/21/24 01/21/24 Unknown History release atorvastatin 10 mg tablet mg 06/29/24 Unknown History metformin 500 mg tablet,extended mg PO 06/29/24 Unknown History release 24 hr diltiazem HCl 180 mg mg PO 01/26/25 Unknown History capsule,extended release 24 hr, controlled (DILT-XR) Allergies Allergy/AdvReac Type Severity Reaction Status Date / Time No Known Allergies Allergy Verified 01/26/25 14:02 Review of Systems Review of Systems: CONSTITUTIONAL: Denies fever, chills, or sweats. EYES: Denies visual changes, redness, or discharge. ENT: Denies rhinorrhea, congestion, sore throat, or otalgia. CARDIOVASCULAR: Denies chest pain, palpitations, syncope, or edema. RESPIRATORY: Denies cough or dyspnea. GASTROINTESTINAL: Denies abdominal pain, vomiting, or diarrhea. Positive for nausea. GENITOURINARY: Denies dysuria or hematuria. SKIN: Denies rash or itching. MUSCULOSKELETAL: Denies back pain, joint pain, or myalgia. NEUROLOGIC: Denies headache, numbness, or weakness. Positive for dizziness. PSYCHIATRIC: Denies anxiety or depression. All other systems reviewed are negative, except as documented in HPI. [facility] Past Medical History Medical History Finger fracture Surgical History Surgical History History of tonsillectomy Social History Social History Smoking status: Current every day smoker Tobacco type: cigarettes Gender identity (if verbalized by the patient): Male Comments At the time of my signature, I reviewed and agree with the nursing past medical, surgical, social, and family history. There is no relevant family history pertinent to the patient complaint. Exam Narrative: GENERAL: This is a well-nourished, well-developed adult, in no apparent distress. They are non ill-appearing, nontoxic appearing. HEAD: normocephalic, atraumatic. EYES: Sclera clear/white. Conjunctiva normal. Vision is grossly intact. Extraocular movements intact. Pupils PERRLA. Nystagmus present with turning of patient's head left or right. Nystagmus worse when turning head to the left. EARS: External ears normal, auditory canals clear and without drainage, TMs normal without perforation. Hearing grossly intact. NOSE: External nose normal with no obvious nasal discharge, nasal turbinates without redness, no rhinorrhea. THROAT: Mucous membranes moist, posterior pharynx clear, without erythema or swelling. Uvula midline. NECK: Neck supple, non-tender without lymphadenopathy, masses or thyromegaly. CARDIOVASCULAR: Regular rate and rhythm without murmurs, gallops, or rubs. Normal S1 and S2. RESPIRATORY: Clear to auscultation. Breath sounds equal bilaterally. No wheezes, rales, or rhonchi. GASTROINTESTINAL: Abdomen soft, non-tender, nondistended. Bowel sounds are active. No hepato-splenomegaly, or palpable masses. No guarding. SKIN: warm, Dry, intact with no suspicious lesions or rash, good texture and turgor. NEURO: awake, alert, and oriented to person, place and time. There were no obvious focal neurologic abnormalities. [employer] Safety [employer] Health Technician strength equal bilaterally. Pronator drift. No limb ataxia. No slurred speech. No facial droop. Tongue midline. Patient ambulatory with steady gait. EXTREMITIES: No joint tenderness, effusion, or edema noted. BACK: Nontender without deformity. No CVA tenderness. Course Course Emergency Course: Portions of this record may have been created with voice recognition software Level of Care: Express Care Visit Vital Signs Vital signs: Vital Signs Temperature 98.1 F 01/26/25 13:22 Pulse Rate 96 01/26/25 13:22 Respiratory Rate 16 01/26/25 13:22 Blood Pressure 130/89 01/26/25 13:22 Pulse Oximetry 99 01/26/25 13:22 Temperature 98.1 F 01/26/25 13:22 Pulse Rate 95 01/26/25 14:19 Respiratory Rate 16 01/26/25 13:22 Blood Pressure 133/95 H 01/26/25 14:19 Pulse Oximetry 99 01/26/25 13:22 Reviewed MDM - Nausea/Vomiting/Diarrhea MDM Narrative Medical decision making narrative: Zeynep hallpike maneuver was negative for nystagmus. Symptoms are likely related to vestibular disorder or vertigo. Patient has a history of crystals in his ear that required physical therapy medication therapy. Orthostatics vital signs were negative for hypotension. NIH score of 0. Will prescribe meclizine as needed for dizziness and Zofran as needed for nausea and vomiting. Discussed physical exam findings. Advised supportive measures and signs/symptoms to go to the ER. Pt is appropriate for outpt treatment and f/u. Differential Diagnosis Differential diagnosis: Likely other (Vertigo, vestibular disorder, CVA, orthostatic hypotension) Critical Care Time Critical Care Time Critical Care Time: No Discharge Plan Discharge Clinical Impression: Dizziness Patient Disposition: Home Condition: Stable Instructions: Dizziness (ED) Additional Instructions: Take meclizine as directed. Meclizine may make you drowsy throughout drive or operate machinery while taking it. You may take the Zofran as needed for nausea and vomiting. Please follow-up with your primary care provider in 3-5 days. Your orthostatic vital signs are normal. Please go to the ER if he develops any one-sided weakness, facial droop, slurred speech, severe headaches, uncontrolled dizziness, uncontrollable nausea and vomiting, or any syncope, or any other concerns. Patient Language: Eritrean Prescriptions: New meclizine 25 mg tablet 25 mg PO QID PRN (Reason: Dizziness) Qty: 20 0RF ondansetron 4 mg tablet,disintegrating 4 mg PO Q8H PRN (Reason: nausea and vomiting) Qty: 14 0RF No Action diltiazem HCl [DILT-XR] 180 mg capsule,ext.rel 24h degradable PO lisinopril 10 mg Tablet 10 mg PO DAILY pantoprazole 40 mg tablet,delayed release (DR/EC) 40 mg PO DAILY (DME) Aerochamber MV Spacer See Rx Instructions .Route Qty: 1 0RF Rx Instructions: As directed levalbuterol tartrate 45 mcg/actuation HFA aerosol inhaler 2 inh inhalation Q6H PRN (Reason: shortness of breath or wheezing) Qty: 15 0RF atorvastatin 10 mg tablet metformin 500 mg tablet extended release 24 hr PO Follow-up/Referrals: PHYSICIAN,ELECTRIC APPLIANCE INSTALLER [Primary Care Provider] - Time of Disposition: 14:28
== END 2025-01-26 14:30 | disposition home or self-care (01) ==
DX: R42 Dizziness and giddiness (principal); F17.210 Nicotine dependence, cigarettes, uncomplicated; I10 Essential (primary) hypertension
CPT/HCPCS: 99213; G0463

== ENCOUNTER 2025-04-09 17:39 | Emergency (ER) | payer OTHER, SELFPAY ==
--- NOTE | 2025-04-09 17:42 | ED_ITS ---
HPI - Dental/Oral General Chief complaint: Dental/Oral Stated complaint: POSSIBLE THRUSH Time Seen by Provider: 04/09/25 17:57 Mode of arrival: ambulatory Limitations: no limitations History of Present Illness HPI Narrative: 49 year old male presents concern for oral thrush. Reports he has recently been on antibiotics and has developed white coating on his tongue a sore on the roof of his mouth and his throat is red. Reports he frequently gets thrush. He has tried at-home remedies without relief Related Data Home Medications ?Medication ?Instructions ?Recorded ?Confirmed ?Last Taken ?Type lisinopril 10 mg tablet 10 mg PO DAILY 04/01/22 01/21/24 Unknown History pantoprazole 40 mg tablet,delayed 40 mg PO DAILY 01/21/24 01/21/24 Unknown History release atorvastatin 10 mg tablet mg 06/29/24 Unknown History metformin 500 mg tablet,extended mg PO 06/29/24 Unknown History release 24 hr diltiazem HCl 180 mg mg PO 01/26/25 Unknown History capsule,extended release 24 hr, controlled (DILT-XR) Allergies Allergy/AdvReac Type Severity Reaction Status Date / Time No Known Allergies Allergy Verified 04/09/25 17:53 Review of Systems Review of Systems: CONSTITUTIONAL: Denies malaise, chills, sweats, or fever. ENT: Reports white coating on the tongue, sores in the mouth, red throat All systems reviewed & are unremarkable except as noted in HPI and below PMFSH Past Medical History Medical History Finger fracture Surgical History Surgical History History of tonsillectomy Social History Social History Smoking status: Current every day smoker Tobacco type: cigarettes Gender identity (if verbalized by the patient): Male Comments At time of signature, agree with nursing past medical, surgical, social and family history. There is no relevant family history pertinent to the presenting complaint Exam Narrative: GENERAL: Well-appearing, well-nourished, and in no acute distress. HEAD: Normocephalic, atraumatic. EYES: PERRLA, sclera clear ENT: Nares clear. Mucous membranes moist. Oropharynx mildly erythematous, soft palate lesion noted. White coating noted on the tongue. Tonsils not enlarged and without exudate. NECK: Supple. CHEST: No respiratory distress. Speaks in full sentences. HEART: Regular rate and rhythm. SKIN: Warm, dry, no visible rash. NEURO: Alert and oriented x3. PSYCH: Normal mood and affect Course Course Emergency Course: Patient is aware of diagnosis, understands and agrees to treatment plan. Anticipatory guidance given. Patient agrees to follow-up as directed and is aware of reasons to seek care at the emergency department. Portions of this record may have been created with voice recognition software Level of Care: Express Care Visit Vital Signs Vital signs: Reviewed. MDM - Dental/Oral MDM Narrative Medical decision making narrative: I evaluated this patient in the express care. History is obtained from patient who is an independent historian and physical exam was performed.? Available medical records were reviewed. ? Exam findings show no acute concerns or changes; patient is non-toxic appearing and is in no distress. ? Differential diagnosis and treatment plan were discussed with the patient. Patient agrees with discussion and after shared medical decision making agrees with plan of care. All questions were answered to the patient's satisfaction. Patient is appropriate for outpatient treatment and follow-up. Critical Care Time Critical Care Time Critical Care Time: No Discharge Plan Discharge Clinical Impression: Thrush Patient Disposition: Home Condition: Stable Instructions: Oral Candidiasis (ED) Additional Instructions: 1) Please follow-up with your primary care doctor as needed. 2) If you have any urgent concerns please go to the ER. 3) Please take medications as prescribed and continue taking your home medications as usual. 4) Please read and follow information included in discharge instructions. Patient Language: Turkmen Prescriptions: New fluconazole 150 mg tablet 150 mg PO Q48H 3 Days Qty: 2 0RF Rx Instructions: take one dose now, and a second dose if symptoms remain in 48 hours nystatin 100,000 unit/mL suspension 5 ml PO QID 7 Days Qty: 140 0RF Rx Instructions: swish and swallow No Action diltiazem HCl [DILT-XR] 180 mg capsule,ext.rel 24h degradable PO meclizine 25 mg tablet 25 mg PO QID PRN (Reason: Dizziness) Qty: 20 0RF ondansetron 4 mg tablet,disintegrating 4 mg PO Q8H PRN (Reason: nausea and vomiting) Qty: 14 0RF lisinopril 10 mg Tablet 10 mg PO DAILY pantoprazole 40 mg tablet,delayed release (DR/EC) 40 mg PO DAILY (DME) Aerochamber MV Spacer See Rx Instructions .Route Qty: 1 0RF Rx Instructions: As directed levalbuterol tartrate 45 mcg/actuation HFA aerosol inhaler 2 inh inhalation Q6H PRN (Reason: shortness of breath or wheezing) Qty: 15 0RF atorvastatin 10 mg tablet metformin 500 mg tablet extended release 24 hr PO Follow-up/Referrals: [place] [Other] Time of Disposition: 18:02
[2025-04-09 17:44] VITALS: BP 129/95; PULSE 96; RESP 16; TEMP 36.5; O2SAT 99
== END 2025-04-09 18:16 | disposition home or self-care (01) ==
PROVIDERS: Emergency Provider Nurse Practitioner
DX: B37.0 Candidal stomatitis (principal); F17.210 Nicotine dependence, cigarettes, uncomplicated
CPT/HCPCS: 99213; G0463